=== PATIENT | male | born 1960 | race Caucasian/White ===

== ENCOUNTER 2025-05-12 07:36 | Outpatient (REF) | payer OTHER, SELFPAY ==
--- OUTSIDE RECORDS SUMMARY | 2025-05-12 07:44 | XMS_ITS | Encounter Summary ---
Author Organization [facility] Address [address] [place] [phone] Phone Care Team Providers Care Beater Tender Name Role Phone Shaila Avendano Primary Care Provider [phone] Encounter Details Date Type Department Care Team (Late st Contact Info) Description 08/11/2022 Procedure Pass [facility] Endoscopy Admitting Dept Virtual Department [address] [place] [address] Social History Tobacco Use Types Packs/Day Years Used Date Smoking Tobacco: Former Cigarettes Smokeless Tobacco: Never Alcohol Use Standard Drinks/Week Comments Yes 1 (1 standard drink = 0.6 oz pur e alcohol) Intimate Partner Violence Answer Date R ecorded Are you denied basic needs s uch as food, clothing, or medical care? No 08/10/2022 Worried food would run out Not on file 08/10 Are you denied basic needs s uch as food, clothing, or medical care? No 08/10/2022 Relationship Control Not on file 08/10/2022 Sex and Gender Information Value Date Recorded Sex Assigned at Not on file Legal Sex Male 12:30 PM EDT Gender Identity Not on file Sexual Orientation Not on file documented as of this encounter Plan of Treatment Not on file documented as of this encounter Visit Diagnoses Not on filedocumented in this encounter Care Teams Beater Tender Relationship Specialty Start Date End Date Shaila Avendano PA [address] [facility] [place] [address] [place] [address] PCP - General 5/2/22 documented as of this encounter Additional Source Comments The information contained in this document represents components of the legal health record. It is not the complete legal health record.[facility]
--- OUTSIDE RECORDS SUMMARY | 2025-05-12 07:44 | XMS_ITS ---
Author Name [facility] Organization Unknown History of Medication Use Medication Directions Dispensed Refills Start Date End Date Stat us diclofenac enteric coated (VOLTAREN) 75 MG EC tablet 06/06/2024 active ascorbic acid (VITAMIN C) 500 MG tablet Take 2 tablets (1,000 mg total) by mouth daily. active cholecalciferol (Vitamin D-[address]) 25 MCG (1000 UT) tablet Take 2 tablets (2,000 Units total) by mouth daily. active Cinnamon 500 MG capsule Take 2,000 mg by mouth. active coenzyme Q10 100 MG capsule Take 1 capsule (100 mg total) by mouth daily. active glucosamine 500 MG Cap capsule Take 1 capsule (500 mg total) by mouth. active multivitamin with minerals (Oncovite) Tab tablet Take 1 tablet by mouth daily. active omega-3 fatty acids 1000 MG Cap capsule Take 1 capsule (1,000 mg total) by mouth daily. active vitamin B complex (b complex vitamins) capsule Take 1 capsule by mouth daily. 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
--- OUTSIDE RECORDS SUMMARY | 2025-05-12 07:44 | XMS_ITS | Encounter Summary ---
Author Organization [facility] Address [address] [facility] [address] [place] [address] Phone Care Team Providers Care Box Brander Name Role Phone Shaila Avendano Primary Care Provider Encounter Details Date Type Department Care Team (Latest Contact Info) Description 06/20/2024 Transcribe Orders [facility] Specimen Processing [address] [place] [address] Shaila Avendano PA [address] [place] [address] [place] [address] Tick bite, unspecified site, initial encounter (Primary Dx) Social History Tobacco Use Types Packs/Day Years Used Date Smoking Tobacco: Former Cigarettes Smokeless Tobacco: Never Alcohol Use Standard Drinks/Week Comments Yes 1 (1 standard drink = 0.6 oz pur e alcohol) Education Answer Date Recorded Are you interested in more education? Not on john e 11/18/2022 Are you concerned about learning? Not on file 11/18/2022 No 11/18/2022 No 11/18/2022 Digital Access Answer Date Recorded No 12/16/2022 No 12/16/2022 No 12/16/2022 Reliable internet access at home? Not on file 12/16/2022 Device with a working camera? Not on file Intimate Partner Violence Answer Date R ecorded [...] documented as of this encounter Visit Diagnoses Diagnosis Tick bite, unspecified site, initial encounter- Primary documented in this encounter Care Teams Box Brander Relationship Specialty Start Date End Date Shaila Avendano PA [address] [facility] [place] [address] [place] [address] PCP - General 11/21/21 documented as of this encounter Additional Source Comments The information contained in this document represents components of the legal health record. It is not the complete legal health record.[facility]
--- OUTSIDE RECORDS SUMMARY | 2025-05-12 07:44 | XMS_ITS | Clinical Summary ---
Author Organization [facility] Address [address] [place] [address] Care Team Providers Care Dinkey Locomotive Engineer Name Role Phone Debby Avendano PA-C Primary Care Provider [phone] Allergies Active Allergy Reactions Criticality Noted Date Comments Pollen Extract Other (See Comments) Low 08/10/2022 Tree pollen Medications ascorbic acid (VITAMIN C) 500 MG tablet Take 2 tablets (1,000 mg total) by mouth daily. Active vitamin B complex (b complex vitamins) capsule Take 1 capsule by mouth daily. Active cholecalciferol (Vitamin D-[address]) 25 MCG (1000 UT) tablet Take 2 tablets (2,000 Units total) by mouth daily. Active Cinnamon 500 MG capsule Take 2,000 mg by mouth. Active diclofenac enteric coated (VOLTAREN) 75 MG EC tablet 06/06/2024 Active glucosamine 500 MG Cap capsule Take 1 capsule (500 mg total) by mouth. Active multivitamin with minerals (Oncovite) Tab tablet Take 1 tablet by mouth daily. Active omega-3 fatty acids 1000 MG Cap capsule Take 1 capsule (1,000 mg total) by mouth daily. Active coenzyme Q10 100 MG capsule Take 1 capsule (100 mg total) by mouth daily. Active Family History Relation Name Status Comments Father Mother Social History Tobacco Use Types Packs/Day Years Used Date Smoking Tobacco: Never Smokeless Tobacco: Never Tobacco Cessation:Counseling Given: Not Answered Alcohol Use Standard Drinks/Week Comments Not Currently 0 (1 standard drink = 0.6 oz pur e alcohol) Sex and Gender Information Value Date Recorded Sex Assigned at Male 06/11/2024 1:54 PM EST Legal Sex Male 1:46 PM EST Gender Identity Male 06/11/2024 1:54 PM EST Sexual Orientation Homosexual (lesbian or ray) 1 08/27/2023 1:00 PM EST Last Filed Vital Signs Vital Sign Reading Time Taken Comments Blood Pressure 136/88 06/24/2024 9:56 AM EST Pulse 63 06/24/2024 9:56 AM EST Temperature 36.7 C (98.1 F) 06/24/2024 9:56 AM EST Respiratory Rate - - Oxygen Saturation 97% 06/24/2024 9:56 AM EST Inhaled Oxygen Concentration - - Weight 95.3 kg (210 lb) 06/24/2024 9:56 AM EST Height 193 cm (6' 4 ) 06/24/2024 9:56 AM EST Body Mass Index 25.56 06/24/2024 9:56 AM EST Plan of Treatment Health Maintenance Due Date Last Done Comments Advance Care Planning 1960 Hepatitis C Virus Screening 1960 DTaP/Tdap/Td Vaccines (1 - Tdap) 1977 Colonoscopy 2003 Pneumococcal Vaccines 50+ (1 of 1 - PCV) 02/19/2008 RSV Vaccine 50 years and old er and Patients (1 - Risk 50-74 years 1-dose series) 02/19/2008 Zoster (Shingles) Vaccine (1 of 2) 02/19/2008 Influenza Vaccine 02/20/2025 COVID-19 Vaccine (1 - 2023-2 5 season) 2025 Hepatitis B Vaccines Aged Out No long er eligible based on patient's age to complete this topic Insurance MEDICARE Care Teams Dinkey Locomotive Engineer Relationship Specialty Start Date End Date Debby Avendano PA-C [address] [place] [address] PCP - General Internal Medicine 06/11/24
--- OUTSIDE RECORDS SUMMARY | 2025-05-12 07:44 | XMS_ITS | Encounter Summary ---
Author Organization [facility] Address [address] [facility] [address] [place] [address] Phone Care Team Providers Care Livestock Trader Name Role Phone Shaila Avendano Primary Care Provider [phone] Encounter Details Date Type Department Care Team (Latest Contact Info) Description 05/11/2025 Transcribe Orders [facility] [address] [place] [address] Shaila Avendano PA [address] [facility] [place] [address] Dietary counseling and surveillance; Impaired fasting glucose; Routine general medical examination at a health care facility; Abnormal serum enzyme level, unspecified Social History Tobacco Use Types Packs/Day Years [...] as of this encounter Plan of Treatment Scheduled Orders Name Type Priority Associated Diagnoses Orde r Schedule Magnesium Lab Routine Dietary counseling and surveillance Impaired fasting glucose Abnormal serum enzyme level, unspecified Expected: 05/11/2025, Expires: 05/11/2026 RBC copper Lab Routine Dietary counseling and surveillance Impaired fasting glucose Abnormal serum enzyme level, unspecified Expected: 05/11/2025, Expires: 05/11/2026 Copper, blood Lab Routine Dietary counseling and surveillance Impaired fasting glucose Abnormal serum enzyme level, unspecified Expected: 05/11/2025, Expires: 05/11/2026 RBC magnesium Lab Routine Dietary counseling and surveillance Impaired fasting glucose Abnormal serum enzyme level, unspecified Expected: 05/11/2025, Expires: 05/11/2026 Ceruloplasmin Lab Routine Dietary counseling and surveillance Impaired fasting glucose Abnormal serum enzyme level, unspecified Expected: 05/11/2025, Expires: 05/11/2026 Hemoglobin A1c Lab Routine Dietary counseling and surveillance Impaired fasting glucose Abnormal serum enzyme level, unspecified Expected: 05/11/2025, Expires: 05/11/2026 Comprehensive metabolic panel Lab Routine Dietary counseling and surveillance Impaired fasting glucose Abnormal serum enzyme level, unspecified Expected: 05/11/2025, Expires: 05/11/2026 CBC and differential Lab Routine Dietary counseling and surveillance Impaired fasting glucose Abnormal serum enzyme level, unspecified Expected: 05/11/2025, Expires: 05/11/2026 Lipid panel Lab Routine Dietary counseling and surveillance Impaired fasting glucose Abnormal serum enzyme level, unspecified Expected: 05/11/2025, Expires: 05/11/2026 documented as of this encounter Visit Diagnoses Diagnosis Dietary counseling and surveillance Impaired fasting glucose Routine general medical examination at a health care facility Abnormal serum enzyme level, unspecified documented in this encounter Care Teams Livestock Trader Relationship Specialty Start Date End Date Shaila Avendano PA [address] [place] [address] [place] [address] PCP - General 11/21/21 documented as of this encounter Additional Source Comments The information contained in this document represents components of the legal health record. It is not the complete legal health record.[facility]
--- OUTSIDE RECORDS SUMMARY | 2025-05-12 07:44 | XMS_ITS | Clinical Summary ---
Author Organization [facility] Address [address] [place] [phone] Phone Care Team Providers Care Project Geologist Name Role Phone Shaila Avendano Primary Care Provider Allergies Active Allergy Reactions Criticality Noted Date Comments Pollen Extracts Sneezing Low 08/10/2022 Tree pollen Medications b complex vitamins capsule Take 1 capsule by mouth daily. Active cholecalciferol (VITAMIN D3) 25 MCG (1,000 unit) tablet Take 2,000 Units by mouth daily. Active ascorbic acid, vitamin C, (VITAMIN C) 500 MG tablet Take 1,000 mg by mouth daily. Active cinnamon bark 500 mg capsule Take 2,000 mg by mouth daily. Active therapeutic multivitamin tablet Take 1 tablet by mouth daily. Active omega 5-yrk-kfc-fish oil 1,000 mg (120 mg-180 mg) Cap Take 1 capsule by mouth daily. Active glucosamine 500 mg Cap Take 500 mg by mouth 3 (three) times a day. Active Active Problems No known active problems Encounters Date Type Department Care Team Description 05/11/2025 Transcribe Orders [facility] [address] [place] [address] Shaila Avendano PA Dietary counseling and surveillance; Impaired fasting glucose; Routine general medical examination at a health care facility; Abnormal serum enzyme level, unspecified from Last 3 Months Social History Tobacco Use Types Packs/Day Years Used Date Smoking Tobacco: Former Cigarettes Smokeless Tobacco: Never Tobacco Cessation:Counseling Given: Not Answered Alcohol Use Standard Drinks/Week Comments Yes 1 [...] on file Sexual Orientation Not on file Last Filed Vital Signs Vital Sign Reading Time Taken Comments Blood Pressure 115/67 08/11/2022 1:00 PM EST Pulse 73 08/11/2022 1:00 PM EST Temperature 36.5 C (97.7 F) 08/11/2022 12:30 PM EST Respiratory Rate 16 08/11/2022 1:00 PM EST Oxygen Saturation 97% 08/11/2022 1:00 PM EST Inhaled Oxygen Concentration - - Weight 90.7 kg (200 lb) 08/10/2022 1:23 PM EST Height 190.5 cm (6' 3 ) 08/10/2022 1:23 PM EST Body Mass Index 25 08/10/2022 1:23 PM EST Plan of Treatment Health Maintenance Due Date Last Done Comments Adult Td,Tdap Booster 1960 DEPRESSION SCREENING 1970 SMOKING Hx and SMOKELESS TOBACCO SCREENING 1971 HEPATITIS C SCREENING 02/19/1976 COLOGUARD 2003 FIT TEST 2003 FOBT 2003 SIGMOIDOSCOPY 2003 VIRTUAL COLONOSCOPY 2003 PNEUMOCOCCAL VACCINES (50+ years) (1 of 1 - PCV) 02/19/2008 ZOSTER VACCINES (1 of 2) 02/19/2008 ABDOMINAL AORTIC ANEURYSM (AAA) SCREENING 2023 INFLUENZA VACCINE (#1) 2025 , 06/05/2021, 06/21/2019 COVID-19 VACCINE (4 - 2024-2 6 season) 2025 04/29/2022, 12/05/2021, 06/20/2021 LIPID PANEL 05/14/2029 05/14/2024, 04/30/2023, 11/21/2021 COLONOSCOPY 08/11/2032 08/11/2022 COLORECTAL CANCER SCREENING 08/11/2032 RSV VACCINE (1 - 1-dose 75+ series) 2033 HEPATITIS A VACCINES Aged Out No long er eligible based on patient's age to complete this topic HIB VACCINES Aged Out No longer eligi ble based on patient's age to complete this topic MENINGOCOCCAL VACCINES (ACWY) Aged Out No longer eligible based on patient's age to complete this topic MENINGOCOCCAL VACCINES (B) Aged Out N o longer eligible based on patient's age to complete this topic Medical Devices Not on file Procedures Procedure Name Priority Date/Time Associated Diagnosis Comments LIPID PANEL Routine 05/14/2024 8:06 AM EDT Routine general medical examination at a health care facility Polymyalgia rheumatica ENDOSCOPY, COLON 08/11/2022 12:0 2 PM EST from Last 3 Months or Most Recently Relevant to Health Maintenance Results * Lipid panel (05/14/2024 8:06 AM EDT) HDL 59 mg/dL [facility] Comment: Interpretation <40 mg/dL: Low HDL cholesterol (major risk factor for CHD) Greater than or equal to 60 mg/dL: High HDL cholesterol ( negative risk factor for CHD) HDL - cholesterol is affected by a number of factors, e.g. smoking, excerise, hormones, sex and age. CHOLESTEROL 204 0 - 240 mg/dL [facility] TRIGLYCERIDES 78 30 - 160 mg/dL [facility] LDL 129 50 - 129 mg/dL [facility] Comment: LDL levels in terms of risk for coronary heart disease: <100 mg/dL: Optimal 100-129 mg/dL: Near or above optimal 130-159 mg/dL: Borderline high 160-189 mg/dL: High >190 mg/dL: Very High CARDIAC RISK RATIO 3.5 3.4 - 5.0 C [facility] Blood 05/14/2024 8:06 AM EDT 05/14/2024 8:11 AM EDT us Shaila Avendano PA LAB BLOOD ORDERABLES Final Result [facility] [address] [place] [address] * ENDOSCOPY, COLON (08/11/2022 12:02 PM EST) Narrative Transcriptions Rajeev Leonard MD - 08/11/2022 12:02 PM EST [facility] Patient Name: Darwin Quinton Attending MD:: RAJEEV LEONARD MD Procedure Date: 08/11/2022 12:02 PM Date of : 1960 Age: 62 Admit Type: Outpatient Gender: Male Room: [place] [address] Referring MD: Shaila Avendano Exam Type: Colonoscopy Indications: High risk colon cancer surveillance: Personalhistory of colonic polyps, Last colonoscopy: date unknown (unable to locate last colonoscopy report) Medications: Propofol per Anesthesia Procedure: Informed consent was obtained from the patientafter discussion of the indications, limitations, alternatives, benefits, and risks of the procedure. Risks specifically discussed include but are not limited to medication reactions, missed lesions, bleeding, perforation, or the need for emergent surgery. Throughout the procedure, the patient's blood pressure, pulse, end-tidal CO2, and oxygensaturations were monitored continuously. The Olympus adult variable colonoscope [id number] #2 was introduced through the anus and advanced to the terminal ileum, with identification of theappendiceal orifice and IC valve. The terminal ileum, the ileocecal valve and the rectum were photographed.The colonoscopy was performed without difficulty. The patient tolerated the procedure well. The qualityof the bowel preparation was good. The bowelpreparation used was PEG/Miralax in Gatoraide and/or Pedialytevia split dose instruction. Complications: No immediate complications. Estimated blood loss:None. Findings: The perianal and digital rectal examinations were normal. Pertinent negatives include normal prostate (size, shape, and consistency). The retroflexed view of the distal rectum and anal verge was normal and showed no anal or rectal abnormalities. Multiple small-mouthed diverticula were found inthe sigmoid colon and descending colon. A tattoo was seen in the distal sigmoid colon. Five sessile polyps were found in the sigmoid colon and transverse colon. The polyps were diminutive in size. These polyps were removed with a cold snare. Resection and retrieval were complete. The exam was otherwise without abnormality. The terminal ileum appeared normal. Retroflexion in the right colon was performed. Impression: - The distal rectum and anal verge are normal on retroflexion view. - Diverticulosis in the sigmoid colon and in the descending colon. - A tattoo was seen in the distal sigmoid colon. - Five diminutive polyps in the sigmoid colon andin the transverse colon, removed with a cold snare. Resected and retrieved. - The examination was otherwise normal. - The examined portion of the ileum was normal. Recommendation: - Repeat colonoscopy in 3 years for surveillance. RAJEEV LEONARD MD 08/11/2022 12:35:39 PM This report has been signed electronically. Number of Addenda: 0 Note Initiated On: 08/11/2022 12:02 PM Procedure Code(s): --- Professional --- 35986, Colonoscopy, flexible; with removal of tumor(s), polyp(s), or other lesion(s) by snare technique --- Technical --- 38014, Colonoscopy, flexible; with removal of tumor(s), polyp(s), or other lesion(s) by snare technique Diagnosis Code(s): --- Professional --- Z86.010, Personal history of colonic polyps K63.5, Polyp of colon K57.30, Diverticulosis of large intestine without perforation or abscess without bleeding --- Technical --- Z86.010, Personal history of colonic polyps K63.5, Polyp of colon K57.30, Diverticulosis of large intestine without perforation or abscess without bleeding CPT copyright 2020 [employer]. All rights reserved. The codes documented in this report are preliminary and upon director child reviewmay be revised to meet current compliance requirements. Procedure Date: 08/11/2022 12:02:16 PM [address] [place] [address] Shaila MELVIN GI PROCEDURE ORDERABLES Fin al Result from Last 3 Months or Most Recently Relevant to Health Maintenance Insurance MEDICARE PART A & B [employer] MEDICARE SUPPLEMENT MEDICARE PART A & B [employer] MEDICARE SUPPLEMENT MEDICARE PART A & B [facility] MEDICARE SUPPLEMENT MEDICARE PART A & B [facility] MEDICARE SUPPLEMENT MEDICARE PART A & B [facility] MEDICARE SUPPLEMENT MEDICARE PART A & B [facility] MEDICARE SUPPLEMENT Care Teams Project Geologist Relationship Specialty Start Date End Date Shaila Avendano PA [address] [facility] [place] [address] PCP - General 11/21/21 Additional Source Comments The information contained in this document represents components of the legal health record. It is not the complete legal health record.[facility]
[2025-05-12 13:22] LABS: MANUAL DIFF FLAG NO
[2025-05-12 13:57] LABS: Hematocrit 42.2 % (42.0-52.0); Hemoglobin 14.2 g/dl (14.0-18.0); Imm Gran Abs Auto 0.00 X10*3/uL (0.00-0.03); Imm Gran Pct Auto 0.0 % (0.0-0.4); Lymphocytes Absolute Auto 1.4 X10*3/uL (1.2-4.9); Mean Corpuscular HGB Conc 33.6 g/dl (31.0-36.0); Mean Corpuscular Hemoglobin 30.2 pg (27.0-33.0); Mean Corpuscular Volume 89.8 fL (80.0-98.0); NRBC Abs Auto 0.000 X10*3/uL (0.0-0.012); NRBC Pct Auto 0.0 /100WBC (0.0-0.2); Platelet Count 205 X10*3/uL (160-400); Red Blood Count 4.70 X10*6/uL (4.60-5.80); White Blood Count 5.8 X10*3/uL (4.8-10.8)
[2025-05-12 14:36] LABS: Hemoglobin A1C 128.5174 umol/L; Total Hemoglobin (HGBA1C) 3637.5848 umol/L
[2025-05-12 18:11] LABS: Alanine Aminotransferase 17 U/L (0-40); Albumin Level 4.4 g/dL (3.5-5.0); Alkaline Phosphatase 47 U/L (39-117); Anion Gap 11 (12-20); Aspartate Amino Transferase 20 U/L (5-37); Blood Urea Nitrogen 14 mg/dL (9-16); Calcium 9.6 mg/dL (8.4-10.2); Carbon Dioxide 28 mmol/L (22-29); Chloride 107 mmol/L (96-108); Cholesterol 227 mg/dL (<200); Estimated Glomerular Filt Rate > 60; HDL Cholesterol 44 mg/dL (>40); Magnesium 2.2 mg/dL (1.6-2.6); Potassium 4.6 mmol/L (3.3-5.1); Sodium 141 mmol/L (135-145); Total Protein 7.1 g/dL (6.5-8.0); Triglycerides 89 mg/dL (<150)
[2025-05-15 22:53] LABS: Magnesium, RBC 6.1 mg/dL (4.0-6.4)
[2025-05-20 11:07] LABS: Copper RBC 0.69 mg/L (0.53-0.91)
== END 2025-05-12 07:37 | disposition home or self-care (01) ==
LOC: HO.MANLDS 07:36
PROVIDERS: Visit Provider Physician Assistant
DX: Z13.6 Encounter for screening for cardiovascular disorders (principal); R73.01 Impaired fasting glucose; Z71.3 Dietary counseling and surveillance
CPT/HCPCS: 36415; 80053; 80061; 82390; 82525; 83036; 83735; 85025